=== PATIENT | female | born 1930 | race Caucasian/White ===

== ENCOUNTER 2017-01-25 08:48 | Emergency (ER) | payer MEDICARE, BC ==
[~2017-01-25] VITALS: Ht 157.5 cm; Wt 59.0 kg
[2017-01-25 08:58] VITALS: BP 135/78; PULSE 80; RESP 16; TEMP 97.7; O2SAT 100
[2017-01-25] MEDS ORDERED: AMBI5TAB PO (09:12)
[2017-01-25] MEDS ORDERED: LEVO50TA4 PO (09:12)
[2017-01-25 09:13] VITALS: BP 153/71; PULSE 70; RESP 20; O2SAT 100
[2017-01-25 09:40] VITALS: O2SAT 98
--- NOTE | 2017-01-25 09:40 | PD ---
HPI Chief Complaint: Abnormal Results Time Seen by Provider: 09:21 Travel History International Travel<30 days: No Contact w/Intl Traveler<30days: No Traveled to known affect area: No History of Present Illness HPI 86-year-old female complains of indigestion, head pressure and dizziness. Patient states that she has had head pressure and dizziness for the past 3 months. Patient was seen by ENT, personal physician and emergency room recently for that. Patient states that she had CT scan of the brain on January 10 which was negative. Patient had blood tests done on January 10 which shows mild elevated AST and ALT. AST was 49 with the normal range 0-41. ALT 61 with normal range 0-31. Patient was seen by personal physician however she was on the way down to [place] and was advised by physician to have gallbladder ultrasound done while down here. Patient states that she has intermittent indigestion symptoms and reflux symptoms for the past few months. Patient has not taken any medication for that. Patient denies any headache. Patient denies any visual change. Patient denies any neck pain. Patient denies any chest pain or shortness of breath. Patient states that the abdominal pain is burning pain intermittently pain localized upper abdomen. Patient denies any pain radiation. Patient denies any nausea vomiting diarrhea. Patient denies any fever chills. Patient also was treated for UTI recently. PFSH Past Medical History Insomnia: Yes Thyroid Disease: Yes Influenza Vaccination: Yes ?: Not Menopausal: Yes Past Surgical History Other Surgery: Yes (MELANOMA REMOVED FACE) Social History Alcohol Use: No Tobacco Use: No Substance Use: No Allergies-Medications (Allergen,Severity, Reaction): Coded Allergies: Codeine (Verified Allergy, Unknown, 01/25/17) Reported Meds & Prescriptions Reported Meds & Active Scripts Active Reported Ambien (Zolpidem Tartrate) 5 Mg Tab 5 Mg PO HS PRN Levothyroxine (Levothyroxine Sodium) 50 Mcg Tab 50 Mcg PO DAILY Review of Systems General / Constitutional: No: Fever Eyes: No: Visual changes HENT: No: Headaches Cardiovascular: No: Chest Pain or Discomfort Respiratory: No: Shortness of Breath Gastrointestinal: Positive: Abdominal Pain Genitourinary: No: Dysuria Musculoskeletal: No: Pain Skin: No Rash Neurologic: No: Weakness Psychiatric: No: Depression Endocrine: No: Polydipsia Hematologic/Lymphatic: No: Easy Bruising Physical Exam Narrative GENERAL: Well-nourished, well-developed patient. SKIN: Warm and dry. HEAD: Normocephalic. EYES: No scleral icterus. No injection or drainage. NECK: Supple, trachea midline. No JVD or lymphadenopathy. CARDIOVASCULAR: Regular rate and rhythm without murmurs, gallops, or rubs. RESPIRATORY: Breath sounds equal bilaterally. No accessory muscle use. GASTROINTESTINAL: Abdomen soft, nondistended. Patient has mild tenderness on palpation epigastric area. No rebound tenderness. No mass. MUSCULOSKELETAL: No cyanosis, or edema. BACK: Nontender without obvious deformity. No CVA tenderness. Neurologic exam normal. Data Data Last Documented VS Vital Signs Date Time Temp Pulse Resp B/P Pulse Ox O2 Delivery O2 Flow Rate FiO2 01/25/17 09:40 98 Room Air 01/25/17 09:13 70 20 153/71 01/25/17 08:58 97.7 Orders Complete Blood Count With Diff (01/25/17 09:29) Comprehensive Metabolic Panel (01/25/17 09:29) Prothrombin Time / Inr (Pt) (01/25/17 09:29) Act Partial Throm Time (Ptt) (01/25/17 09:29) Lipase (01/25/17 09:29) Urinalysis - C+S If Indicated (01/25/17 09:29) Us Abdomen Gallbladder (01/25/17 09:29) Iv Access Insert/Monitor (01/25/17 09:29) Ecg Monitoring (01/25/17 09:29) Oximetry (01/25/17 09:29) Labs Laboratory Tests Test 01/25/17 01/25/17 09:39 10:40 White Blood Count 5.9 TH/MM3 Red Blood Count 3.92 MIL/MM3 Hemoglobin 12.2 GM/DL Hematocrit 36.8 % Mean Corpuscular Volume 93.7 FL Mean Corpuscular Hemoglobin 31.0 PG Mean Corpuscular Hemoglobin 33.1 % Concent Red Cell Distribution Width 13.6 % Platelet Count 266 TH/MM3 Mean Platelet Volume 8.3 FL Neutrophils (%) (Auto) 61.7 % Lymphocytes (%) (Auto) 22.2 % Monocytes (%) (Auto) 9.3 % Eosinophils (%) (Auto) 6.2 % Basophils (%) (Auto) 0.6 % Neutrophils # (Auto) 3.6 TH/MM3 Lymphocytes # (Auto) 1.3 TH/MM3 Monocytes # (Auto) 0.6 TH/MM3 Eosinophils # (Auto) 0.4 TH/MM3 Basophils # (Auto) 0.0 TH/MM3 CBC Comment DIFF FINAL Differential Comment Prothrombin Time 10.5 SEC Prothromb Time International 1.0 RATIO Ratio Activated Partial 26.0 SEC Thromboplast Time Sodium Level 144 MEQ/L Potassium Level 3.8 MEQ/L Chloride Level 109 MEQ/L Carbon Dioxide Level 27.9 MEQ/L Anion Gap 7 MEQ/L Blood Urea Nitrogen 13 MG/DL Creatinine 0.58 MG/DL Estimat Glomerular Filtration 99 ML/MIN Rate Random Glucose 84 MG/DL Calcium Level 8.5 MG/DL Total Bilirubin 0.3 MG/DL Aspartate Amino Transf 25 U/L (AST/SGOT) Alanine Aminotransferase 37 U/L (ALT/SGPT) Alkaline Phosphatase 62 U/L Total Protein 6.8 GM/DL Albumin 3.2 GM/DL Lipase 242 U/L Urine pH 5.5 Urine Protein NEG mg/dL Urine Glucose (UA) NEG mg/dL Urine Ketones NEG mg/dL Urine Occult Blood NEG Urine Nitrite NEG Urine Bilirubin NEG Urine Leukocyte Esterase TRACE MDM Medical Decision Making Medical Screen Exam Complete: Yes Emergency Medical Condition: Yes Interpretation(s) Last Impressions Gall Bladder Ultrasound 01/25/17 0929 Signed Impressions: Service Date/Time: Wednesday, January 25, 2017 09:52 - CONCLUSION: Limited exam without evidence for stone or biliary duct dilatation. Philippe Cabrera MD FACR 11:18 AM. CBC within normal limit. CMP within normal limit. UA is negative. Differential Diagnosis Differential diagnosis including gastritis, PUD, pancreatitis, cholecystitis, colitis, UTI, pyelonephritis. Patient has chronic recurrent had pressure and dizziness. Narrative Course 86-year-old female with epigastric abdominal pain, indigestion, with mildly elevated LFTs. Diagnosis Primary Impression: Gastritis Qualified Code: K29.00 - Acute gastritis without hemorrhage, unspecified gastritis type Patient Instructions: General Instructions Additional Instructions: Protonix as directed. Follow-up with personal physician. Return if worse. Med/Other Pt SpecificInfo: Prescription(s) given Scripts Pantoprazole (Protonix)20 Mg Tab20 Mg PO DAILY #30 TAB Prov:Aj Worrell MD 01/25/17 Disposition: 01 DISCHARGE HOME Condition: Stable Aj Worrell MD Jan 25, 2017 09:40
[2017-01-25 09:48] LABS: AUTOMATED NEUTROPHIL # 3.6 TH/MM3 (1.8-7.7); BASOPHIL % 0.6 % (0.0-2.0); EOSINOPHIL # 0.4 TH/MM3 (0-0.4); EOSINOPHIL % 6.2 % (0.0-4.0); HEMATOCRIT 36.8 % (35.0-46.0); HEMO FLAGS DIFF FINAL; LYMPH % 22.2 % (9.0-44.0); LYMPHOCYTE # 1.3 TH/MM3 (1.0-4.8); MEAN CELL VOLUME 93.7 FL (80.0-100.0); MEAN CORPUSCULAR HGB CONC 33.1 % (32.0-36.0); MONO % 9.3 % (0.0-8.0); NEUT % 61.7 % (16.0-70.0); PLATELET COUNT 266 TH/MM3 (150-450); RED BLOOD COUNT 3.92 MIL/MM3 (4.00-5.30); RED CELL DISTRIBUTION WIDTH 13.6 % (11.6-17.2); WHITE BLOOD COUNT 5.9 TH/MM3 (4.0-11.0)
[2017-01-25 10:02] LABS: PROTHROMBIN TIME - PATIENT 10.5 SEC (9.8-11.6)
[2017-01-25 10:05] LABS: CHLORIDE 109 MEQ/L (98-107); POTASSIUM 3.8 MEQ/L (3.5-5.1); SODIUM (NA) 144 MEQ/L (136-145)
[2017-01-25 10:10] LABS: ANION GAP 7 MEQ/L (5-15); BICARBONATE 27.9 MEQ/L (21.0-32.0); BLOOD UREA NITROGEN 13 MG/DL (7-18)
[2017-01-25 10:13] LABS: ALT (GPT) 37 U/L (10-53); GLOMERULAR FILTRATION RATE 99 ML/MIN (>89)
[2017-01-25 10:16] LABS: ALKALINE PHOSPHATASE 62 U/L (45-117)
[2017-01-25 10:19] LABS: AST (GOT) 25 U/L (15-37)
[2017-01-25 10:23] LABS: TOTAL BILIRUBIN ADULT 0.3 MG/DL (0.2-1.0)
--- NOTE | 2017-01-25 10:45 | RADHPO ---
EXAM DATE/TIME: 01/25/2017 09:52 [facility] COMPARISON: No previous studies available for comparison. INDICATIONS : Right upper quadrant pain. MEDICAL HISTORY : Thyroid disease. Melanoma. Insomnia. SURGICAL HISTORY : Right hip replacement. Bilateral carpel tunnel release. Melanoma removed from face. ENCOUNTER: Initial ACUITY: 1 day PAIN SCORE: 3/10 LOCATION: Right upper quadrant MEASUREMENTS: LIVER: 13.3 cm length COMMON DUCT: 7 mm RIGHT KIDNEY: 10.2 x 4.5 x 4.8 cm FINDINGS: LIVER: Normal echotexture without focal lesion or ductal dilatation. COMMON DUCT: No intraluminal mass or stone visualized. GALLBLADDER: Gallbladder is mildly prominent but unremarkable. PANCREAS: The visualized portions are within normal limits. RIGHT KIDNEY: No evidence of hydronephrosis, stone, or mass. CONCLUSION: Limited exam without evidence for stone or biliary duct dilatation. Philippe Cabrera MD FACR on January 25, 2017 at 10:35 Board Certified Radiologist. This report was verified electronically.
[2017-01-25 10:59] LABS: BLOOD, URINE NEG (NEG); GLUCOSE,URINE NEG (NEG); KETONE, URINE NEG (NEG); NITRITE,URINE NEG (NEG); PH, URINE 5.5 (5.0-8.5)
[2017-01-25 11:11] LABS: METHOD OF COLLECTION CLEAN CATCH; RBC, URINE 0-3 /hpf (0-3); URINE COLOR YELLOW (YELLW/STRAW); WBC, URINE 0-2 /hpf (0-5)
[2017-01-25 11:12] LABS: COMMENT (UR) CULT NOT INDICATED; CULTURE IF INDICATED CULT NOT INDICATED; SQUAMOUS EPITHELIAL CELL URINE 0-5 /hpf (0-5)
[2017-01-25 11:17] VITALS: BP 145/70; PULSE 66; RESP 18; O2SAT 98
[2017-01-25] MEDS ORDERED: PANT20 PO (11:22)
== END 2017-01-25 11:36 | disposition home or self-care (01) ==
LOC: PHED 08:48
DX: K29.00 Acute gastritis without bleeding (principal); R42 Dizziness and giddiness
CPT/HCPCS: 76705; 80053; 81001; 83690; 85025; 85610; 85730

== ENCOUNTER 2017-02-15 15:55 | Emergency (ER) | payer MEDICARE, BC ==
[~2017-02-15] VITALS: Ht 158.8 cm; Wt 59.1 kg
[~2017-02-15 15:55] MED LIST: AMBI5TAB PO; LEVO50TA4 PO; PANT20 PO
[2017-02-15 16:20] VITALS: BP 147/77; PULSE 77; RESP 14; TEMP 97.7; O2SAT 95
--- NOTE | 2017-02-15 16:20 | PD ---
HPI Chief Complaint: Chest Pain Time Seen by Provider: 16:08 Travel History International Travel<30 days: No Contact w/Intl Traveler<30days: No Traveled to known affect area: No History of Present Illness HPI This 86-year-old female says she had some chest pain. The pain started around noon today. He was a sharp pain in the midsternum that lasted a few seconds at a time. It came back recurrently for a while. She had 2 episodes while coming here and she has not had an episode since. Each episode lasts a couple of seconds described as very sharp. There is no radiation. There is no diaphoresis. There is no associated nausea. She has not had pain like this before. She has no history of heart disease. She has no history of diabetes or hypertension. She did take an aspirin prior to coming here. She was seen here a few weeks ago. Her doctor told that it several liver function tests. She had been in the emergency department in [place] with abdominal pain and had some elevation of her LFTs. When she was here she had an ultrasound of her gallbladder which was negative. She was given a prescription for Protonix but has not taken it until today when she took 1. She is not having pain now PFSH Past Medical History Insomnia: Yes Thyroid Disease: Yes Menopausal: Yes Past Surgical History Other Surgery: Yes (MELANOMA REMOVED FACE) Social History Alcohol Use: No Tobacco Use: No Substance Use: No Allergies-Medications (Allergen,Severity, Reaction): Coded Allergies: Codeine (Verified Allergy, Unknown, 02/15/17) Reported Meds & Prescriptions Reported Meds & Active Scripts Active Protonix (Pantoprazole Sodium) 20 Mg Tab 20 Mg PO DAILY Reported Ambien (Zolpidem Tartrate) 5 Mg Tab 5 Mg PO HS PRN Levothyroxine (Levothyroxine Sodium) 50 Mcg Tab 50 Mcg PO DAILY Review of Systems General / Constitutional: No: Fever, Chills Eyes: No: Diploplia, Blurred Vision HENT: No: Headaches, Vertigo Cardiovascular: Positive: Chest Pain or Discomfort Respiratory: No: Cough, Shortness of Breath, Wheezing Gastrointestinal: No: Vomiting, Diarrhea Genitourinary: No: Urgency Musculoskeletal: No: Myalgias, Arthralgias Skin: No Itching Psychiatric: No: Anxiety Endocrine: No: Cold Intolerance Hematologic/Lymphatic: No: Easy Bruising Physical Exam Narrative GENERAL: Well-developed female SKIN: Focused skin assessment warm/dry. HEAD: Atraumatic. Normocephalic. EYES: Pupils equal and round. No scleral icterus. No injection or drainage. ENT: No nasal bleeding or discharge. Mucous membranes pink and moist. NECK: Trachea midline. No JVD. CARDIOVASCULAR: Regular rate and rhythm. No murmur appreciated. RESPIRATORY: No accessory muscle use. Clear to auscultation. Breath sounds equal bilaterally. No chest wall tenderness GASTROINTESTINAL: Abdomen soft, non-tender, nondistended. Hepatic and splenic margins not palpable. MUSCULOSKELETAL: No obvious deformities. No clubbing. No cyanosis. No edema. NEUROLOGICAL: Awake and alert. No obvious cranial nerve deficits. Motor grossly within normal limits. Normal speech. PSYCHIATRIC: Appropriate mood and affect; insight and judgment normal. Data Data Last Documented VS Vital Signs Date Time Temp Pulse Resp B/P Pulse Ox O2 Delivery O2 Flow Rate FiO2 02/15/17 16:20 Room Air 02/15/17 16:20 97.7 77 14 147/77 95 Orders Electrocardiogram (02/15/17 16:18) Complete Blood Count With Diff (02/15/17 16:18) Comprehensive Metabolic Panel (02/15/17 16:18) Troponin I (02/15/17 16:18) Labs Laboratory Tests Test 02/15/17 16:24 White Blood Count 6.4 TH/MM3 Red Blood Count 4.05 MIL/MM3 Hemoglobin 12.4 GM/DL Hematocrit 37.5 % Mean Corpuscular Volume 92.6 FL Mean Corpuscular Hemoglobin 30.7 PG Mean Corpuscular Hemoglobin 33.1 % Concent Red Cell Distribution Width 13.2 % Platelet Count 258 TH/MM3 Mean Platelet Volume 9.0 FL Neutrophils (%) (Auto) 59.9 % Lymphocytes (%) (Auto) 24.3 % Monocytes (%) (Auto) 9.8 % Eosinophils (%) (Auto) 4.7 % Basophils (%) (Auto) 1.3 % Neutrophils # (Auto) 3.8 TH/MM3 Lymphocytes # (Auto) 1.6 TH/MM3 Monocytes # (Auto) 0.6 TH/MM3 Eosinophils # (Auto) 0.3 TH/MM3 Basophils # (Auto) 0.1 TH/MM3 CBC Comment DIFF FINAL Differential Comment Sodium Level 142 MEQ/L Potassium Level 4.6 MEQ/L Chloride Level 108 MEQ/L Carbon Dioxide Level 25.2 MEQ/L Anion Gap 9 MEQ/L Blood Urea Nitrogen 23 MG/DL Creatinine 0.84 MG/DL Estimat Glomerular Filtration 64 ML/MIN Rate Random Glucose 94 MG/DL Calcium Level 9.4 MG/DL Total Bilirubin 0.4 MG/DL Aspartate Amino Transf 40 U/L (AST/SGOT) Alanine Aminotransferase 52 U/L (ALT/SGPT) Alkaline Phosphatase 68 U/L Troponin I LESS THAN 0.02 NG/ML Total Protein 7.2 GM/DL Albumin 3.5 GM/DL MDM Medical Decision Making Medical Screen Exam Complete: Yes Emergency Medical Condition: Yes Medical Record Reviewed: Yes Differential Diagnosis Differential includes GERD, coronary artery disease, atypical chest pain Narrative Course This patient's pain only lasts a few seconds at a time. I don't think this is consistent with coronary artery disease. Troponin is negative and her EKG is negative. The pain has subsided in frequency considerably. She has had one or 2 episodes while here. I think she is stable for discharge. I have cautioned her that she should return if increasing pain. I have recommended that she take the Protonix daily Diagnosis Primary Impression: Chest pain, atypical Additional Instructions: Return if increasing pain or change in the pattern of the pain Disposition: 01 DISCHARGE HOME Condition: Stable Chip Stovall MD Feb 15, 2017 16:20
[2017-02-15 16:43] LABS: AUTOMATED NEUTROPHIL # 3.8 TH/MM3 (1.8-7.7); BASOPHIL # 0.1 TH/MM3 (0-0.2); BASOPHIL % 1.3 % (0.0-2.0); EOSINOPHIL # 0.3 TH/MM3 (0-0.4); EOSINOPHIL % 4.7 % (0.0-4.0); HEMATOCRIT 37.5 % (35.0-46.0); HEMO FLAGS DIFF FINAL; LYMPH % 24.3 % (9.0-44.0); LYMPHOCYTE # 1.6 TH/MM3 (1.0-4.8); MEAN CELL VOLUME 92.6 FL (80.0-100.0); MEAN CORPUSCULAR HEMOGLOBIN 30.7 PG (27.0-34.0); MEAN CORPUSCULAR HGB CONC 33.1 % (32.0-36.0); MONO % 9.8 % (0.0-8.0); NEUT % 59.9 % (16.0-70.0); PLATELET COUNT 258 TH/MM3 (150-450); RED BLOOD COUNT 4.05 MIL/MM3 (4.00-5.30); RED CELL DISTRIBUTION WIDTH 13.2 % (11.6-17.2); WHITE BLOOD COUNT 6.4 TH/MM3 (4.0-11.0)
[2017-02-15 16:48] LABS: CHLORIDE 108 MEQ/L (98-107); POTASSIUM 4.6 MEQ/L (3.5-5.1); SODIUM (NA) 142 MEQ/L (136-145)
[2017-02-15 16:52] LABS: ANION GAP 9 MEQ/L (5-15); BICARBONATE 25.2 MEQ/L (21.0-32.0); BLOOD UREA NITROGEN 23 MG/DL (7-18)
[2017-02-15 16:55] LABS: ALT (GPT) 52 U/L (10-53); AST (GOT) 40 U/L (15-37); GLOMERULAR FILTRATION RATE 64 ML/MIN (>89)
[2017-02-15 16:56] LABS: TOTAL BILIRUBIN ADULT 0.4 MG/DL (0.2-1.0)
[2017-02-15 16:58] LABS: ALKALINE PHOSPHATASE 68 U/L (45-117)
[2017-02-15 17:22] VITALS: BP 143/77
--- NOTE | 2017-02-16 21:25 | EKG ---
Date Performed: 02/15/2017 Time Performed: 16:01:02 PTAGE: 86 years EKG: Sinus rhythm Leftward axis Poor R wave progression - probable normal variant Low QRS voltages in precordial leads Borderline ECG NO PREVIOUS TRACING DOCTOR: Raiza Berkowitz Interpretating Date/Time 02/16/2017 21:24:58
== END 2017-02-15 17:27 | disposition home or self-care (01) ==
LOC: PHED 15:55
DX: R07.89 Other chest pain (principal)
CPT/HCPCS: 80053; 84484; 85025; 93005